=== PATIENT | male | born 1975 | race Caucasian/White ===

== ENCOUNTER 2017-04-24 19:20 | Emergency (ER) | payer OTHER ==
[2017-04-24 19:59] VITALS: BP 122/75; PULSE 79; RESP 18; TEMP 97.9
[2017-04-24] MEDS ORDERED: DIPH,PERTUS(ACELL)TETVAC-LF 0.5 ML VIAL IM ONE (20:39)
--- NOTE | 2017-04-24 21:03 | ED ---
Wound/Laceration HPI - General Chief Complaint: Wound/Laceration Stated Complaint: Lac/Forehead Time Seen by Provider: 04/24/17 20:22 Source: patient Mode of arrival: ambulatory Limitations: no limitations - History of Present Illness Initial Comments: 41-year-old male patient presents to emergency department today for evaluation of left eyebrow laceration. Patient states about 4 hours ago he was playing basketball and was elbowed in the face. Patient denies any loss of consciousness. Denies any headache, neck pain, back pain, chest pain, shortness of breath, abdominal pain, nausea, vomiting, difficulty urinating or having bowel movements. Denies any dizziness, weakness, blurred, or double vision. He is unsure when his tetanus shot was last updated. He denies any other injuries or physical symptoms. - Related Data Home Medications Medication Instructions Recorded Confirmed No Known Home Medications [No 04/24/17 04/24/17 Known Home Medications] Allergies Allergy/AdvReac Type Severity Reaction Status Date / Time No Known Allergies Allergy Verified 04/24/17 19:59 Review of Systems ROS Statement: Those systems with pertinent positive or pertinent negative responses have been documented in the HPI. ROS Other: All systems not noted in ROS Statement are negative. Past Medical History Past Medical History: No Reported History History of Any Multi-Drug Resistant Organisms: None Reported Past Surgical History: No Surgical Hx Reported Past Psychological History: No Psychological Hx Reported Smoking Status: Current every day smoker Past Alcohol Use History: Occasional Past Drug Use History: None Reported General Exam Limitations: no limitations General appearance: alert, in no apparent distress Head exam: Present: atraumatic, normocephalic, normal inspection Eye exam: Present: normal appearance, PERRL, EOMI, other (No periorbital tenderness.). Absent: scleral icterus, conjunctival injection, periorbital swelling, periorbital tenderness Pupils: Present: normal accommodation ENT exam: Present: normal exam, normal oropharynx, mucous membranes moist, TM's normal bilaterally Neck exam: Present: normal inspection, full ROM, other (No pain, step-off, or deformity noted to firm midline palpation of the posterior cervical spine, full range of motion without pain or limitation.). Absent: tenderness, meningismus, lymphadenopathy Respiratory exam: Present: normal lung sounds bilaterally. Absent: respiratory distress, wheezes, rales, rhonchi, stridor Cardiovascular Exam: Present: regular rate, normal rhythm, normal heart sounds. Absent: systolic murmur, diastolic murmur, rubs, gallop, clicks GI/Abdominal exam: Present: soft, normal bowel sounds. Absent: distended, tenderness, guarding, rebound, rigid Extremities exam: Present: normal inspection, full ROM, normal capillary refill. Absent: tenderness, pedal edema, joint swelling, calf tenderness Back exam: Present: normal inspection, other (No pain, step-off, or deformity noted to for midline palpation of the vertebra.) Neurological exam: Present: alert, oriented X3, CN II-XII intact Psychiatric exam: Present: normal affect, normal mood Skin exam: Present: warm, dry, intact, normal color. Absent: rash Course Vital Signs 04/24/17 19:56 Temperature 97.9 F Pulse Rate 79 Respiratory 18 Rate Blood Pressure 122/75 O2 Sat by Pulse 98 Oximetry Procedures - Laceration Laceration #1 Consent Obtained: verbal consent Time Out Performed: Yes Indication: laceration Site: other (Left eyebrow) Size (cm): 3 Description: linear, clean Anesthetic Used: lidocaine 1% Anesthesia Technique: local infiltration Amount (mls): 3 Pre-repair: irrigated extensively Type of Sutures: nylon Size of Sutures: 5-0 Number of Sutures: 6 Technique: simple, interrupted Patient Tolerated Procedure: well, no complications Medical Decision Making - Medical Decision Making 41-year-old male patient presented for evaluation of laceration to left eyebrow. Neurologically patient is intact. Physical exam otherwise is unremarkable. Sutures were placed. The patient does live in [place] and will be returning tomorrow. He is instructed to have sutures removed in 5 days. Instructed to watch for signs or symptoms of infection and to seek care immediately if he has any new, worsening, or concerning symptoms. Disposition Clinical Impression: Eyebrow laceration Disposition: HOME SELF-CARE Condition: Good Instructions: Diphtheria/Pertussis/Tetanus Vaccine (By injection), Care For Your Stitches (ED), Laceration (ED) Additional Instructions: Keep wound clean and dry. Cover with in about ointment for the first 24 hours. Gently cleanse twice daily with warm soapy water to prevent scabbing. Return for removal of stitches in 5 days. Watch for any signs or symptoms of infection including redness, swelling, drainage of pus, fever, or chills. Follow-up with primary care physician for recheck in 1-2 days. Return or seek care immediately for any new, worsening, or concerning symptoms. Referrals: None,Stated [Primary Care Provider] - 1-2 days Time of Disposition: 21:03
== END 2017-04-24 21:23 | disposition home or self-care (01) ==
LOC: EC 19:20
DX: S01.112A Laceration without foreign body of left eyelid and periocular area, initial encounter (principal); F17.200 Nicotine dependence, unspecified, uncomplicated; Z53.20 Procedure and treatment not carried out because of patient's decision for unspecified reasons; W21.05XA Struck by basketball, initial encounter; Y93.67 Activity, basketball
CPT/HCPCS: 12013; 99282